=== PATIENT | male | born 2000 | race Caucasian/White ===

== ENCOUNTER 2022-07-14 00:13 | Emergency (ER) | payer BC ==
[~2022-07-14] VITALS: Ht 180.3 cm; Wt 90.9 kg
[2022-07-14 00:31] VITALS: TEMP 97.8
[2022-07-14 03:09] VITALS: BP 118/61; PULSE 80
== END 2022-07-14 03:11 | disposition home or self-care (01) ==
LOC: COL.ER 00:13
DX: S43.005A Unspecified dislocation of left shoulder joint, initial encounter (principal); W22.03XA Walked into furniture, initial encounter
CPT/HCPCS: J2060